=== PATIENT | female | born 1970 | race Caucasian/White ===

== ENCOUNTER 2018-02-19 18:54 | Emergency (ER) | payer SELFPAY ==
[2018-02-19 18:54] VITALS: BP 165/94; PULSE 90; RESP 14; TEMP 37.3; O2SAT 95; BMI 21.4
--- NOTE | 2018-02-19 19:34 | EKG12_ITS ---
Test Reason : ABD PAIN Blood Pressure : / mmHG Vent. Rate : 082 BPM Atrial Rate : 082 BPM P-R Int : 200 ms QRS Dur : 086 ms QT Int : 370 ms P-R-T Axes : 086 072 073 degrees QTc Int : 432 ms Normal sinus rhythm Normal ECG Confirmed by NACHO WALLACE, SUZANNE ([id number]), medical editor MARKEL FREITAS ([id number]) on 02/20/2018 1:03:15 PM Referred By: BRENDA Confirmed By:SUZANNE GRIFFITH MD
--- NOTE | 2018-02-19 19:35 | ED.VISSUMM ---
- ER Visit Summary Date of Service: 02/19/18 Chief Complaint: Abdominal pain History of Present Illness: The patient is a 47 F no senior past medical history. No prior abdominal surgeries. Says since Friday she has had intermittent abdominal pain primarily epigastric and periumbilical. She has never had pain like this before. She denies any nausea, vomiting, diarrhea or fever. She denies any dysuria or constipation. She denies any melena. She states it is worse in the epigastric and periumbilical region. She denies any trauma. No fever. No back pain associated with it nor chest pain. [place] like she felt better on Friday and in worse and worse today. Physical Examination: Middle-aged female no acute distress. Vital signs are stable and afebrile. She does not look septic or toxic. H EENT exam unremarkable. Neck nontender no lymphadenopathy. Lungs clear to auscultation bilaterally. Heart regular rate and rhythm no murmur rate about 90 abdomen is soft. Nondistended. Normal bowel sounds. No peritoneal signs. She does have epigastric and. Umbilical tenderness. There is no rebounding or guarding. No rigidity. There is no hernias or masses. No distention. No specific Morris sign and no McBurney's point tenderness. She is tender in epigastric and right upper quadrant. She is moving all 4 extremities. Neurologically she is awake and alert without focal motor deficits. Test Results: CBC normal. White count of 10. Normal H&H. Chemistries normal. Normal creatinine and gap. Liver enzymes normal. Lipase normal. UA normal. EKG sinus rhythm rate 82 no signs of ID or ischemia. CT abdomen pelvis showed incidental findings of left renal cyst but no acute abnormality. Read by the radiologist and myself. Emergency Department Course and Treatment: Patient with 2-3 day history of abdominal pain. Currently does not want anything for pain. Treatment Plan: Repeat exam patient is doing okay. Abdomen remains benign. She still complaining of discomfort in the abdomen. She will be given IV Toradol and discharged to home. We went over all her test results and follow-up with a local physician. Disposition: Discharge Impression: Acute abdominal pain of uncertain etiology This note was generated with [employer] system master dictation software. It may contain incorrect words, spelling, and punctuation that were not noted in review of the chart prior to signing ED Disposition - Plan for ED Patient: Chief Complaint: Abd Pain Referrals: Care Physician,No Primary [NON-STAFF] -
--- NOTE | 2018-02-19 19:36 | NURSING ---
NO OLD EKG
[2018-02-19] MEDS: 0.9% Normal Saline 1,000 ML 1000 ML IV (19:50)
[2018-02-19 19:55] LABS: Absolute Lymphocyte Count 3.07 X10^3/ul (0.83-4.51); Absolute Neutrophil Count 6.1 X10^3/uL (2.0-7.7); Basophil# 0.05 X10^3/uL; Basophil% 0.5 % (0-1); Eosinophil# 0.12 X10^3/uL; Eosinophils% 1.2 % (0-5); Hematocrit 35.9 % (37-47); Hemoglobin 12.3 g/dl (12.0-15.0); Lymphocyte # 3.07 X10^3/ul (4.0); Lymphocyte % 30.8 % (19-41); Mean Corp Hgb Conc 34.3 g/gl (32-36); Mean Corpuscular Hgb 33.4 pg (27.0-32.0); Mean Corpuscular Volume 97.6 fL (81-99); Mean Platelet Vol. 9.1 fl (6.2-12.0); Monocyte# 0.65 X10^3/uL; Monocyte% 6.5 % (0-10); Neutrophil # 6.05 X10^3/uL (2.7-7.7); Neutrophil % 60.8 % (47-70); POSITIVE COUNT NO; POSITIVE DIFFERENTIAL NO; POSITIVE MORPHOLOGY NO; Platelet Count 360 K/mm3 (150-450); RBC Distribution Width CV 12.9 % (11.6-14.6); RBC Distribution Width SD 43.7 fl (35.1-43.9); Red Blood Count 3.68 M/mm3 (4.2-5.4)
[2018-02-19 20:21] LABS: AST(SGOT) 23 U/L (15-37); Alanine Aminotransfer ALT/SGPT 13 U/L (13-56); Albumin, Serum 3.2 g/dL (3.2-5.0); Alkaline Phosphatase 65 U/L (45-117); Anion Gap 6 (5-15); BUN 11 mg/dL (7-18); BUN/Creat Ratio 13.1 RATIO (10-20); Bilirubin, Direct 0.11 mg/dL (0.00-0.30); Calcium,Total 8.4 mg/dL (8.5-10.1); Chloride 107 mmol/L (98-107); Creatinine, Serum 0.84 mg/dL (0.55-1.02); EST Glomerular Filtration Rate 76 mL/min (>60); Est Glom Filt Rate - Afr Amer 92 mL/min (>60); Estimated Creatinine Clearance 75.84 ml/min; Globulin 3.8 g/dL (2.2-4.2); Glucose 92 mg/dL (74-106); Lipase 206 U/L (73-393); Potassium 4.7 mmol/L (3.5-5.1); Sodium Level 137 mmol/L (136-145)
--- NOTE | 2018-02-19 20:31 | CT_ITS ---
STUDY: CT ABDOMEN AND PELVIS WITH CONTRAST REASON FOR EXAM: Female, 47 years old. Upper abdominal pain RADIATION DOSAGE (If Supplied By Facility): CTDIvol = ( 14.88 ) mGy, DLP = ( 438.92 ) mGycm TECHNIQUE: Transaxial images were obtained from the dome of the diaphragm to the symphysis pubis without oral contrast. 100ML ml of Isovue 300 contrast was administered. Sagittal and coronal images were reconstructed. Individualized dose optimization techniques were used for this CT. COMPARISON: None. FINDINGS: The visualized lung bases are unremarkable. The visualized portions of the heart are within normal limits. Normal liver. Normal gallbladder and extrahepatic biliary system. Normal spleen. Normal pancreas. Normal bilateral adrenal glands. Normal right kidney. 1.8 cm and 8 mm cysts in the left kidney. Normal visualized stomach. Normal small intestine. Normal colon. The appendix is visualized and appears normal. Normal abdominal aorta. Normal inferior vena cava. Normal retroperitoneum. Normal urinary bladder. Normal abdominal wall. 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 CT/Abdomen/Pelvis W IV Cont ONLY IMPRESSION: Left renal cysts. Electronically Signed: Anselmo Bland DO at 21:31 EDT Tel [phone], Service support ,
[2018-02-19 20:39] LABS: Bacteria 0 SEEN /hpf (None Seen); Mucous, Urine 0 SEEN /hpf (<or=2+); Red Blood Cells-Urine 0 SEEN /hpf (0-5); White Blood Cells 0 SEEN /hpf (0-5)
[2018-02-19 20:48] LABS: Color, Urine Yellow (Yellow); Glucose, Dipstick Normal (Normal); Ketone-Dipstick Negative (Negative); Leukocyte Esterase-Dipstick Negative /ul (Negative); Nitrite-Dipstick Negative (Negative); Occult Blood-Urine 10 /ul (Negative); Protein-Dipstick Negative (Negative); Urine Bilirubin Dipstick Negative (Negative); Urine Clarity Clear (Clear); Urine Urobilinogen Normal (Normal); Urine pH 6.5 (5.0 - 8.0)
[2018-02-19 20:54] LABS: Squamous Epithelial Cells - UA 0-5 SEEN /hpf (5-10)
[2018-02-19 21:00] VITALS: RESP 16
--- NOTE | 2018-02-19 22:25 | ED.DEP ---
ED Disposition - Plan for ED Patient: Disposition: Home or Assisted Living Chief Complaint: Abd Pain Instructions: ED Abdominal Pain Unkn Cause Referrals: Dick Durbin MD [STAFF PHYSICIAN] - As soon as possible Additional Instructions: Tylenol or Motrin for pain. Return if intractable pain, fever or feeling worse. All your lab work and CAT scan was normal tonight. Follow-up with a primary care physician.
[2018-02-19] MEDS: Ketorolac 30 MG/ML Syringe IV (22:39)
[2018-02-19 22:46] VITALS: BP 156/84; PULSE 81; RESP 18; O2SAT 98
--- NOTE | 2018-02-19 22:47 | ED.RN ---
REVIEWED D/C INSTRUCTIONS, FOLLOW UP CARE, AND S/S THAT WOULD WARRANT A RETURN TO THE ED WITH PT. PT VERBALIZED AN UNDERSTANDING AND DENIES FURTHER QUESTIONS FOR THIS RN. PT SKIN P/W/D, RESP EVEN AND UNLABORED, PT A&O X 3, NO DISTRESS NOTED. PT AMBULATED OUT OF ED, GAIT STEADY.
== END 2018-02-19 22:49 | disposition home or self-care (01) ==
PROVIDERS: Emergency Provider Emergency Medicine; Family Provider Family Medicine; PCP Family Medicine
DX: R10.13 Epigastric pain (principal); R10.11 Right upper quadrant pain; Z87.891 Personal history of nicotine dependence
CPT/HCPCS: 74177; 80048; 80076; 81001; 83690; 85025; 93005; 96361; 96374; 99283; Q9967